=== PATIENT | male | born 1990 | race Caucasian/White ===

== ENCOUNTER 2018-01-22 18:17 | Emergency (ER) | payer MEDICAID ==
[~2018-01-22] VITALS: Ht 172.7 cm; Wt 77.1 kg
[~2018-01-22 18:17] MED LIST: CEPH500 PO; CODACEE120 PO; ERYT.5TO OS; ESCI10; Flexeril 10 mg10 MG PO; HYDPAM50 PO; HYDR1TAB94 PO; Motrin600 MG PO; NAPR500 PO; NEOSPORIN ANT14.2 GM TOP; Norco 5-325 Ta1 EACH PO; RXHYDACE PO; SULTRIDS PO
[2018-01-22] MEDS ORDERED: Monodox100 MG PO (18:31)
[2018-01-22] MEDS ORDERED: NO ROUTINE MEDS (18:34)
== END 2018-01-22 18:50 | disposition home or self-care (01) ==
LOC: ER 18:17
DX: L03.311 Cellulitis of abdominal wall (principal); I10 Essential (primary) hypertension; F17.210 Nicotine dependence, cigarettes, uncomplicated; Z88.5 Allergy status to narcotic agent
CPT/HCPCS: 99283

== ENCOUNTER 2020-04-27 02:46 | Emergency (ER) | payer SELFPAY ==
[~2020-04-27 02:46] MED LIST changes: +Monodox100 MG PO; +NO ROUTINE MEDS
== END 2020-04-27 04:20 | disposition left against medical advice (07) ==
LOC: ER 02:46
DX: Z53.21 Procedure and treatment not carried out due to patient leaving prior to being seen by health care provider (principal)

== ENCOUNTER 2021-06-15 20:19 | Emergency (ER) | payer OTHER ==
[~2021-06-15] VITALS: Ht 172.7 cm; Wt 83.9 kg
[2021-06-15] MEDS ORDERED: Monodox100 MG PO (20:51)
== END 2021-06-15 21:06 | disposition home or self-care (01) ==
LOC: ER 20:19
DX: L73.9 Follicular disorder, unspecified (principal); I10 Essential (primary) hypertension; Z88.5 Allergy status to narcotic agent; F17.210 Nicotine dependence, cigarettes, uncomplicated
CPT/HCPCS: 99282; A9270

== ENCOUNTER 2022-03-24 13:28 | Emergency (ER) | payer OTHER ==
[~2022-03-24] VITALS: Ht 170.2 cm; Wt 83.9 kg
[2022-03-24] MEDS ORDERED: Amoxicillin500 MG PO (13:41)
== END 2022-03-24 13:44 | disposition home or self-care (01) ==
LOC: ER 13:28
DX: K04.7 Periapical abscess without sinus (principal); I10 Essential (primary) hypertension; F17.210 Nicotine dependence, cigarettes, uncomplicated; Z88.5 Allergy status to narcotic agent
CPT/HCPCS: 99282